=== PATIENT | female | born 1955 | race Caucasian/White ===

== ENCOUNTER → 2017-09-12 | Outpatient (CLI) | payer OTHER ==
[~2017-09-12] MED LIST: CHOL500045 PO; LISI5TAB25 PO
--- NOTE | 2017-09-13 10:28 | RADIOLOGY IMAGING REPORT ---
FACILITY: [facility] - [place], [place] PATIENT NAME: ISIAH KENDALL : [id number] MR: [id number] V: [id number] EXAM DATE: ORDERING PHYSICIAN: ARAVIND MAYA TECHNOLOGIST: Payal Toussaint PROCEDURE:BILATERAL DIGITAL SCREENING MAMMOGRAM WITH CAD ASSISTED INTERPRETATION & 3D TOMOSYNTHESIS COMPARISON:Prior mammograms 06/28/16, 03/16/15, 01/26/14. INDICATIONS:SCREENING FINDINGS: Moderately heterogeneous fibroglandular tissue is seen throughout the breasts. The parenchymal pattern has remained stable allowing for difference in mammographic technique & patient positioning. There is no evidence of malignant appearing mass, malignant appearing calcifications or other secondary sign of malignancy in either breast. DIAGNOSTIC CATEGORY 1--NEGATIVE. RECOMMENDATIONS: ROUTINE MAMMOGRAM AND CLINICAL EVALUATION. IMPRESSION: BIRADS 1: Negative No significant abnormality is seen. Dictated by: Mariah Valero M.D. on 09/12/2017 at 16:12 Transcribed by: JENN on 09/12/2017 at 16:16 Approved by: Mariah Valero M.D. on 09/13/2017 at 10:27 [facility]
== END ==
LOC: MAMO 01:06
PROVIDERS: ATTEND Physician Assistant
DX: Z12.31 Encounter for screening mammogram for malignant neoplasm of breast (principal)
CPT/HCPCS: 77063; 77067